=== PATIENT | female | born 1965 | race Caucasian/White ===

== ENCOUNTER 2018-07-01 14:44 | Emergency (ER) | payer OTHER ==
[~2018-07-01] VITALS: Ht 167.6 cm; Wt 79.4 kg
[2018-07-01] MEDS ORDERED: IROSPAN 24/6 T1 EACH (14:50)
[2018-07-01] MEDS ORDERED: ALBUTEROL SULFAT2 MG (14:50)
[2018-07-01] MEDS ORDERED: ATRIPLA TABLET1 EACH (14:50)
[2018-07-01] MEDS ORDERED: PROVENTIL HFA6.7 GM (14:51)
== END 2018-07-01 17:54 | disposition home or self-care (01) ==
LOC: ER 14:44 → EDBD 15:07 → ER 15:07
DX: J11.1 Influenza due to unidentified influenza virus with other respiratory manifestations (principal)

== ENCOUNTER 2018-08-20 17:24 | Emergency (ER) | payer OTHER ==
[~2018-08-20] VITALS: Ht 162.6 cm; Wt 79.8 kg
[~2018-08-20 17:24] MED LIST: ALBUTEROL SULFAT2 MG; ATRIPLA TABLET1 EACH; IROSPAN 24/6 T1 EACH; PROVENTIL HFA6.7 GM
== END 2018-08-22 | disposition left against medical advice (07) ==
LOC: ER 17:24
DX: Z53.20 Procedure and treatment not carried out because of patient's decision for unspecified reasons (principal)

== ENCOUNTER 2018-10-01 13:26 | Emergency (ER) | payer OTHER ==
[~2018-10-01] VITALS: Ht 162.6 cm; Wt 78.5 kg
== END 2018-10-01 17:12 | disposition home or self-care (01) ==
LOC: ER 13:26
DX: K30 Functional dyspepsia (principal)